=== PATIENT | male | born 1990 | race African-American/Black ===

== ENCOUNTER 2022-07-24 20:06 | Emergency (ER) | payer BC, SELFPAY ==
--- NOTE | ~2022-07-24 | XR_ITS ---
EXAMINATION: XR ANKLE, LEFT CLINICAL INFORMATION: Ankle pain COMPARISON: None available. TECHNIQUE: AP, lateral, and mortise views of the left ankle. FINDINGS: No visible acute fracture or dislocation. Alignment is anatomic. Joint spaces are maintained. Talar dome is intact. Anterior calcaneal process, fifth metatarsal base appears intact. No tibiotalar joint effusion. XR/XR ankle LT min 3V IMPRESSION: No radiographic evidence of acute fracture or dislocation.
[2022-07-24 20:23] VITALS: BP 128/72; PULSE 94; RESP 18; TEMP 36.9; O2SAT 98; BMI 21.6
--- NOTE | 2022-07-24 20:23 | ED_ITS ---
HPI - General Adult General Chief complaint: Extremity Injury, Lower <CJ Uriostegui Last Filed: 07/24/22 20:27> Stated complaint: Left Foot pain,left side of mouth pain <CJ Uriostegui Last Filed: 07/24/22 20:27> Time Seen by Provider: 07/24/22 21:49 <CJ Uriostegui Last Filed: 07/24/22 20:27> Source: patient <DO Jenny Linares Last Filed: 07/24/22 22:22> Mode of arrival: ambulatory <DO Jenny Linares Last Filed: 07/24/22 22:22> Limitations: no limitations <DO Jenny Linares Last Filed: 07/24/22 22:22> History of Present Illness HPI narrative: 32-year-old male presents emergency room complaining of fascicular rash to left side of his face started around his lips does have 1 lesion on his nose. He also is complaining of ankle pain. Pain is a falls or injuries does the ankle he feels just burning along the vein on the anterior portion of the medial malleolus. Patient denies fevers chills cough nausea vomiting or diarrhea. He states he had had shingles in the past. <DO Jenny Linares Last Filed: 07/24/22 22:22> Related Data Home medications: Previous Rx's Medication Instructions Recorded acyclovir 400 mg tablet 800 mg PO 5XD 7 days #70 tabs 07/24/22 acyclovir 800 mg tablet 800 mg PO 5XD 10 days #50 tabs 07/24/22 prednisone 20 mg tablet 60 mg PO DAILY Asthma 5 days #15 07/24/22 tabs prednisone 20 mg tablet 60 mg PO DAILY Asthma 5 days #15 07/24/22 tabs <CJ Uriostegui Last Filed: 07/24/22 20:27> Allergies/adverse reactions: Allergies Allergy/AdvReac Type Severity Reaction Status Date / Time No Known Allergies Allergy Verified 07/24/22 20:23 [No Known Allergies*] <CJ Uriostegui Last Filed: 07/24/22 20:27> Review of Systems Review of Systems: Review of systems: General: Patient denies any fever chills recent illness or falls Musculoskeletal: Denies back pain or body aches or other injuries HEENT: denies headache, runny nose, ear pain Respiratory: denies shortness of breath, cough Cardiovascular: no chest pain or palpitations : denies dysuria, frequency Abdomen: no nausea vomiting denies abdominal pain Extremities: no swelling, Left ankle pain Skin: rash to mouth no diaphoresis <Vipul Zuluaga DO - Last Filed: 07/24/22 22:22> Yes all other systems are reviewed and are negative <Vipul Zuluaga DO - Last Filed: 07/24/22 22:22> [facility] Social History Social History: Social History Advance Directives: No Advance Directives Information Provided: No <CJ Uriostegui Last Filed: 07/24/22 20:27> Physical Exam ED Vital Signs: Vital Signs - 24 hr 07/24/22 20:23 Temperature 98.4 F Pulse Rate 94 Respiratory Rate 18 Blood Pressure 128/72 Pulse Oximetry 98 Oxygen Delivery Method Room Air BMI result Body Mass Index 21.6 <CJ Uriostegui Last Filed: 07/24/22 20:27> Vital Signs - 24 hr 07/24/22 20:23 Temperature 98.4 F Pulse Rate 94 Respiratory Rate 18 Blood Pressure 128/72 Pulse Oximetry 98 Oxygen Delivery Method Room Air BMI result Body Mass Index 21.6 <Viplu Zuluaga DO - Last Filed: 07/24/22 22:22> General: Well-appearing well-nourished in no signs of distress HEENT: Normocephalic atraumatic Neck: No signs of JVD, no masses no tenderness or lymphadenopathy Cardiovascular: Regular rate and rhythm Respiratory: Clear to auscultation bilaterally Abdomen: Soft nontender no masses. Extremities: Normal pedal pulses no signs of edema Skin: Rash vesicular in different stage of healing one is close to his left eye, has a vesicle to the left side of nose as well very similiar to hahn's signDry warm no rashes Back: No tenderness full ROM <DO Jenny Linares Last Filed: 07/24/22 22:22> Course Course Course Narrative: This is an RME: Additional HPI, ROS, PE not included below will be deferred to primary provider. 32 year old M presents with CC of left foot pain that began 2 days ago. Patient reports the pain is sharp and stabbing in the left ankle. Patient additionally reports a rash on the face affecting the lips, cheek and nose that began approximately 4 days ago while in [place]. PE: vesicular rash with crusting on the lateral aspect of the lips, normal left foot Plan: imaging <CJ Uriostegui Last Filed: 07/24/22 20:27> Medical Decision Making Differential Diagnosis Differential Diagnoses: The differential diagnosis associated with the presentation includes <Vipul Zuluaga DO - Last Filed: 07/24/22 22:22> Concern for ophthalmological shingles patient has no eye injection pain or change in vision I do not think he has herpes ophthalmicus but I will send the patient follow-up with an community service director in case this does get any worse. I do think this patient has shingles history of the patient valacyclovir and prednisone. Start zinc was concerned is IIIb thing of concern I will have the patient follow the primary care doctor for that. <Vipul Zuluaga DO - Last Filed: 07/24/22 22:22> Discharge Plan Discharge Clinical Impression: Ankle sprain and strain, Shingles <CJ Uriostegui Last Filed: 07/24/22 20:27> Patient Disposition: Home, Self-Care <CJ Uriostegui Last Filed: 07/24/22 20:27> Instructions: Ankle Sprain (ED), Shingles (ED) <CJ Uriostegui Last Filed: 07/24/22 20:27> Additional Instructions: You have shingles that is located around your left eye. This is concerning. You need to follow up with a community service director if you have blurry vision or pain to the eye. <CJ Uriostegui Last Filed: 07/24/22 20:27> Prescriptions: New acyclovir 400 mg tablet 800 mg PO 5XD 7 Days Qty: 70 0RF prednisone 20 mg tablet 60 mg PO DAILY 5 Days Qty: 15 0RF acyclovir 800 mg tablet 800 mg PO 5XD 10 Days Qty: 50 0RF Rx Instructions: space evenly during waking hours prednisone 20 mg tablet 60 mg PO DAILY 5 Days Qty: 15 0RF <CJ Uriostegui - Last Filed: 07/24/22 20:27> Referrals: Naun Avendano [Physician] - (You have to call to follow up for your eye. If you start to get redness tearing or change in vision please return to the ED.) <CJ Uriostegui - Last Filed: 07/24/22 20:27>
[2022-07-24 22:00] VITALS: BP 111/70; PULSE 71; RESP 20; TEMP 36.6; O2SAT 100
[2022-07-24] MEDS: valACYclovir HCL 1,000 MG TABLET 1000 MG PO (22:15)
[2022-07-24] MEDS: predniSONE 20 MG TABLET 60 MG PO (22:15)
[2022-07-24] MEDS: Acetaminophen 325 MG TABLET 650 MG PO (22:35)
== END 2022-07-24 22:44 | disposition home or self-care (01) ==
PROVIDERS: Emergency Provider Student in an Organized Health Care Education/Training Program
DX: S93.402A Sprain of unspecified ligament of left ankle, initial encounter (principal); M79.672 Pain in left foot; X58.XXXA Exposure to other specified factors, initial encounter; Y93.9 Activity, unspecified; Y92.9 Unspecified place or not applicable; Y99.9 Unspecified external cause status; Z79.899 Other long term (current) drug therapy
CPT/HCPCS: 73610; 99283; 99284

== ENCOUNTER 2022-09-19 15:31 | Emergency (ER) | payer OTHER, BC, SELFPAY ==
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
[2022-09-19 15:59] VITALS: BP 113/65; BP 116/74; PULSE 82; PULSE 87; RESP 16; TEMP 36.9; O2SAT 98; O2SAT 99; BMI 22.1
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
== END 2022-09-19 18:55 | disposition home or self-care (01) ==
PROVIDERS: Emergency Provider Emergency Medicine
DX: Z04.1 Encounter for examination and observation following transport accident (principal); M54.2 Cervicalgia; M25.531 Pain in right wrist; M79.642 Pain in left hand; R51.9 Headache, unspecified
CPT/HCPCS: 70450; 72125; 73110; 73130; 99284

== ENCOUNTER 2023-04-19 11:21 | Emergency (ER) | payer MEDICAID, SELFPAY ==
--- NOTE | ~2023-04-19 | XR_ITS ---
EXAMINATION: XR CHEST CLINICAL INFORMATION: Chest pressure COMPARISON: None available. TECHNIQUE: Frontal view of the chest was obtained. FINDINGS: No significant abnormality is noted involving the heart, lungs, mediastinum, bony thorax or soft tissues. XR/XR chest 1V IMPRESSION: Unremarkable examination.
--- NOTE | 2023-04-19 11:34 | ECG_ITS ---
Test Reason : CHEST PAIN Blood Pressure : / mmHG Vent. Rate : 088 BPM Atrial Rate : 088 BPM P-R Int : 154 ms QRS Dur : 090 ms QT Int : 374 ms P-R-T Axes : 081 062 039 degrees QTc Int : 452 ms Normal sinus rhythm Normal ECG No previous ECGs available Referred By: Yasmeen Minaya Electronically Signed By:RUSS CANTU
[2023-04-19 11:36] VITALS: BP 115/70; PULSE 70; O2SAT 100; BMI 21.1
--- NOTE | 2023-04-19 11:37 | PC.NURSE ---
pt presents to the ED w/ nonradiating left sided chest pain/n/v/chills since last night. per pt's partner - pt drank an excessive amount of alcohol last night for an unknown reason. partner states that the pt never drinks. pt seemingly lethargic when conversating w/ pt. unable to answer questions in an appropriate time frame. answer questions w/ eyes closed/with hand gestures. not able to follow commands adequately/without redirection. vss and up to date. nsr on the surveillance monitor. swabs obtained sent to lab. ekg performed by tech. no sob/wob noted. respirations even and unlabored. partner bedside. call cantu placed within reach.
[2023-04-19] MEDS: ondansetron HCL 4 MG/2 ML VIAL IVPUSH (11:48)
[2023-04-19] MEDS: 0.9 % Sodium Chloride 1,000 ML 999 ML IV (11:48)
[2023-04-19 11:49] VITALS: BP 120/62; PULSE 98; RESP 18; TEMP 36.7; O2SAT 95
--- NOTE | 2023-04-19 11:50 | PC.NURSE ---
medication/IVF administered per provider order.
--- NOTE | 2023-04-19 11:56 | PC.NURSE ---
pt to xray at this time.
--- NOTE | 2023-04-19 12:11 | ED.CHESTPAIN ---
HPI - Chest Pain General Chief Complaint: Chest Pain Stated Complaint: CHEST PRESSURE VOMITING Time Seen by Provider: 04/19/23 11:33 Source: patient and family Mode of arrival: EMS History of Present Illness HPI narrative: 33-year-old male who arrives via EMS after he was consuming significant amount of alcohol yesterday, has not smoked marijuana couple of days and denies any other drug use or recent illnesses and denies any fever, chills but states that last night he had several episodes of nausea and vomiting which has at this time subsided and patient is resting comfortably. Related Data Previous Rx's Medication Instructions Recorded acyclovir 400 mg tablet 800 mg (2 x 400 mg) PO 5XD 7 days 07/24/22 #70 tabs acyclovir 800 mg tablet 800 mg PO 5XD 10 days #50 tabs 07/24/22 prednisone 20 mg tablet 60 mg (3 x 20 mg) PO DAILY Asthma 07/24/22 5 days #15 tabs prednisone 20 mg tablet 60 mg (3 x 20 mg) PO DAILY Asthma 07/24/22 5 days #15 tabs acetaminophen 500 mg tablet 500 mg PO Q6H PRN fever or pain 09/19/22 (Tylenol Extra Strength) #14 tabs cyclobenzaprine 5 mg tablet 5 mg PO Q8H PRN pain (scale score 09/19/22 7-10) 5 days #14 tabs lidocaine 5 % topical patch 1 patch topical DAILY PRN pain #30 09/19/22 (Lidoderm) ea naproxen 500 mg tablet 500 mg PO BID PRN pain 10 days #20 09/19/22 tabs Allergies Allergy/AdvReac Type Severity Reaction Status Date / Time No Known Allergies Allergy Verified 04/19/23 11:35 [No Known Allergies*] Review of Systems Review of Systems: Pertinent positives and negatives as stated in HPI PMFSH Past Medical History Source: nursing notes reviewed Onset Date is defined in the Problem List Problems that require an onset date and time if occurred within 24 hrs of arrival to the ED Aortic Dissection and Rupture; Neurologic impairment; Cardiopulmonary Arrest; Endotracheal Intubation; Insertion or Replacement of Mechanical Circulatory Assist Device Social History Social History Alcohol intake: current Smoked in Last 30 Days: Yes Use of substances other than those prescribed or required for medical reasons: No Substance Use Type: Marijuana Advance Directives: No Advance Directives Information Provided: No Physical Exam Vital Signs: Vital Signs: Last Vital Signs Temp 98.0 F 04/19/23 11:49 Pulse 98 04/19/23 11:49 Resp 18 04/19/23 11:49 BP 120/62 04/19/23 11:49 Pulse Ox 95 04/19/23 11:49 O2 Del Method Room Air 04/19/23 11:49 BMI result Body Mass Index 21.1 VITAL SIGNS: Reviewed. GENERAL: Well developed, well nourished, in no acute distress. HEAD: Normocephalic/atraumatic EYES: PERRLA, EOMI EARS: Ext canals without abnormality NOSE: Nares patent bilateral OROPHARYNX: no oral lesions noted, posterior pharynx clear NECK: Supple, no adenopathy LUNGS: Normal breath sounds, no tachypnea/wheeze/rhonchi/rales. SpO2<95> CARDIOVASCULAR: Regular rate and rhythm without noted murmurs ABDOMEN: Soft, non-tender, non-distended with bowel sounds. MUSCULOSKELETAL: No tenderness, deformities, or effusions noted on gross inspection. EXTREMITIES: No cyanosis, clubbing or edema. SKIN: Inspection of the skin reveals no rashes NEUROLOGIC: Alert and oriented x 4. Strength and sensation to light touch were grossly intact x 4. Medications Administered Discontinued Medications Generic Name Dose Route Start Last Admin Trade Name Freq PRN Reason Stop Dose Admin Al Hydroxide/Mg Hydroxide 30 ml 04/19/23 13:27 04/19/23 13:52 Magnesium Hydrox/Alum Hydrox 30 Ml Oral.Susp PO 04/19/23 13:28 30 ml ONCE ONE Administration Sodium Chloride 1,000 mls @ 999 mls/hr 04/19/23 11:45 04/19/23 12:49 Ns IV 04/19/23 12:45 Infused .Q1H1M MANJEET Infusion Lidocaine HCl 10 ml 04/19/23 13:27 04/19/23 13:52 Lidocaine Hcl Viscous 2 % 15 Ml Solution MUCOUS MEM 04/19/23 13:28 10 ml ONCE ONE Administration Ondansetron HCl 4 mg 04/19/23 11:33 04/19/23 11:48 Ondansetron Hcl 4 Mg/2 Ml Vial IVPUSH 04/19/23 11:34 4 mg ONCE ONE Administration Ondansetron HCl 4 mg 04/19/23 12:05 04/19/23 12:17 Ondansetron Odt 4 Mg Tab.Stu FLORESINGU 04/19/23 12:06 4 mg ONCE ONE Administration Sucralfate 1 gm 04/19/23 13:27 04/19/23 13:52 Sucralfate Oral Suspension 1 Gm/10 Ml Oral.Susp PO 04/19/23 13:28 1 gm ONCE ONE Administration Medical Decision Making Medical Decision Making MDM Narrative: 33-year-old male with history and clinical presentation, DDX: Chest pain began after multiple episodes of nausea and vomiting, no suspicion for Angela-Russell, suspect Alcoholic gastritis with acid reflux, no epigastric discomfort in so low clinical suspicion for a pancreatitis, hemodynamically stable and do not suspect pneumothorax or pneumonia. Patient is currently not nauseous or vomiting and is resting. Will obtain EKG/chest x-ray and viral testing, administer fluids and then p.o. challenge. I reviewed all investigations and chest x-ray is negative for evidence to suggest pneumothorax/pneumonia and otherwise my interpretation is in agreement with radiology's impression. I find no acute changes on EKG. Viral testing is negative for COVID-19/influenza. Clinically, no evidence of pancreatitis. Patient provided with GI cocktail as well as Carafate and if tolerated will be discharged home. On re-evaluation patient is doing well and as a matter fact is being verbally abusive to the staff and is otherwise discharged. Differential Diagnosis Differential Diagnoses: The differential diagnosis associated with the presentation includes Please see the discussion above Admission/Observation Consideration of admission/observation: Escalation of care including admission/observation considered Please see the discussion above Lab Data MDM Lab Attestation statement: I reviewed the patient's lab results. Please see the discussion above Labs: Lab Results 04/19/23 Range/Units 11:50 COVID-19 ([facility]IMMY) Negative (Negative) COVID-19 Clin Com See Note Influenza Type A ([facility]) Negative (Negative) Influenza Type B ([facility]) Negative (Negative) Influenza A & B Note See Note Independent Interpretation I performed an independent interpretation of an: EKG Interpretation: Normal sinus rhythm, HR-88, no STEMI, TN/QRS/QTC is within normal limits. Radiology Impression Discussion of test interpretation with radiology: I have reviewed the radiologist's reading. Radiologist Impression: Please see the discussion above Discharge Plan Discharge Clinical Impression: Alcoholic gastritis, Nausea & vomiting Patient Disposition: Home, Self-Care Instructions: Gastritis (ED), Acute Nausea and Vomiting (ED) Additional Instructions: 1. Continue to drink plenty of fluids and at this time avoid all fatty/spicy food intake, stick to a bland diet. 2. Follow-up with your primary care doctor. Return to the ER for any worsening symptoms. Prescriptions: No Action acyclovir 400 mg tablet 800 mg PO 5XD 7 Days Qty: 70 0RF prednisone 20 mg tablet 60 mg PO DAILY 5 Days Qty: 15 0RF acyclovir 800 mg tablet 800 mg PO 5XD 10 Days Qty: 50 0RF Rx Instructions: space evenly during waking hours prednisone 20 mg tablet 60 mg PO DAILY 5 Days Qty: 15 0RF acetaminophen [Tylenol Extra Strength] 500 mg tablet 500 mg PO Q6H PRN (Reason: fever or pain) Qty: 14 0RF lidocaine [Lidoderm] 5 % adhesive patch,medicated 1 patch topical DAILY MDD remove after 12 hours PRN (Reason: pain) Qty: 30 0RF Rx Instructions: leave on most painful area for up to 12 hrs naproxen 500 mg tablet 500 mg PO BID PRN (Reason: pain) 10 Days Qty: 20 0RF cyclobenzaprine 5 mg tablet 5 mg PO Q8H PRN (Reason: pain (scale score 7-10)) 5 Days Qty: 14 0RF
[2023-04-19] MEDS: Ondansetron ODT 4 MG TAB.RAPDIS TRANSLINGU (12:17)
[2023-04-19 12:27] LABS: COVID-19 Test Negative (Negative); IDNOW Serial# 08D9AD1C; IDNOW Serial# 152EDE1D; Influenza A Negative (Negative); Influenza B2 Negative (Negative)
[2023-04-19] MEDS: Lidocaine HCl Viscous 2 % 15 ML SOLUTION 10 ML MUCOUS MEM (13:52)
[2023-04-19] MEDS: Magnesium Hydrox/Alum Hydrox 30 ML ORAL.SUSP PO (13:52)
[2023-04-19] MEDS: Sucralfate Oral Suspension 1 GM/10 ML ORAL.SUSP PO (13:52)
--- NOTE | 2023-04-19 13:58 | PC.NURSE ---
medicated per provider order. pt more awake/following commands appropriately at this time. pt is resting comfortably in no apparent distress. no sob/wob noted. respirations remain even and unlabored. partner bedside. call cantu placed within reach.
--- NOTE | 2023-04-19 14:27 | PC.NURSE ---
cap to IV access found to be missing/dislodged by pt. small amount of blood noted on pt's hospital attire/on blanket. pt became increasingly agitated/verbally aggressive towards this RN and furniture repair technicianartie Benedict. we attempted to redirect pt/calm him down as he continued to rip off hospital equipment. Dr. Minaya notified/aware of situation. IV removed. pt provided w/ d/c paperwork/instructions given.
== END 2023-04-19 14:32 | disposition home or self-care (01) ==
PROVIDERS: Emergency Provider Student in an Organized Health Care Education/Training Program
DX: K29.20 Alcoholic gastritis without bleeding (principal); R11.2 Nausea with vomiting, unspecified; Z11.52 Encounter for screening for COVID-19
CPT/HCPCS: 71045; 87502; 87635; 93005; 96361; 96374; 99284; 99285; J2405

== ENCOUNTER → 2023-04-19 11:34 | Outpatient (BNV) | payer MEDICAID, SELFPAY | PROVIDERS: Emergency Provider Student in an Organized Health Care Education/Training Program; Visit Provider Internal Medicine | DX: R07.9 Chest pain, unspecified (principal) | CPT/HCPCS: 93010 ==